=== PATIENT | female | born 1995 | race Caucasian/White ===

== ENCOUNTER 2017-09-08 13:54 | Emergency (ER) | payer OTHER ==
[~2017-09-08] VITALS: Ht 165.1 cm; Wt 52.6 kg
[2017-09-08 14:03] VITALS: BP 119/84
== END 2017-09-08 14:26 | disposition home or self-care (01) ==
LOC: ER 14:00
DX: S16.1XXA Strain of muscle, fascia and tendon at neck level, initial encounter (principal); S09.90XA Unspecified injury of head, initial encounter; V00.311A Fall from snowboard, initial encounter; Y93.29 Activity, other involving ice and snow; Y92.89 Other specified places as the place of occurrence of the external cause; Y99.8 Other external cause status
CPT/HCPCS: A4606; Z7610